=== PATIENT | male | born 1955 | race Caucasian/White ===

== ENCOUNTER 2022-01-16 14:20 | Outpatient (CLI) | payer MEDICARE, BC, SELFPAY | END 2022-01-16 14:21 | disposition home or self-care (01) | PROVIDERS: PCP Family Medicine Adolescent Medicine; Visit Provider Physician Assistant | DX: H90.3 Sensorineural hearing loss, bilateral (principal) | CPT/HCPCS: 92557; 92567 ==

== ENCOUNTER 2022-02-13 13:00 | Outpatient (RCR) | payer MEDICARE, BC, SELFPAY | END 2022-04-30 23:59 | disposition home or self-care (01) | LOC: ANHAUDASC 13:00 | PROVIDERS: PCP Family Medicine Adolescent Medicine; Visit Provider Physician Assistant | DX: Z46.1 Encounter for fitting and adjustment of hearing aid (principal) | CPT/HCPCS: 99199; V5261 ==

== ENCOUNTER 2022-08-13 13:00 | Outpatient (RCR) | payer MEDICARE, BC, SELFPAY | END 2022-08-27 23:59 | disposition home or self-care (01) | LOC: ANHAUDASC 13:00 | PROVIDERS: PCP Family Medicine Adolescent Medicine; Visit Provider Physician Assistant | DX: Z46.1 Encounter for fitting and adjustment of hearing aid (principal) | CPT/HCPCS: 99199 ==

== ENCOUNTER → 2022-12-25 10:28 | Outpatient (CLI) | payer MEDICARE, BC, SELFPAY ==
--- NOTE | ~2022-12-25 | MR_ITS ---
EXAMINATION: MR brain IAC wo con DATE: 12/25/2022 11:14 INDICATION: Other amnesia. TECHNIQUE: Magnetic resonance imaging (MRI) of the brain, brainstem, and internal auditory canals was performed without intravenous contrast. COMPARISON: None. FINDINGS: There is no intracranial hemorrhage, acute infarction, or abnormal intracranial mass lesion . There are a few punctate foci of increased T2-weighted signal intensity in the cerebral white matte r, which is normal for the patient's age. The ventricles are normal in size. The orbits are normal. T here is mild mucosal thickening in the paranasal sinuses. There is a trace left otomastoid effusion. The internal auditory canals and inner ears are normal. IMPRESSION: 1. Normal brain. Reviewed, dictated and finalized at location A. IMPRESSION: 1. Normal brain.
== END ==
PROVIDERS: PCP Family Medicine Adolescent Medicine; Visit Provider Family Medicine Adolescent Medicine
DX: R41.3 Other amnesia (principal)
CPT/HCPCS: 70551

== ENCOUNTER 2024-01-27 07:52 | Outpatient (CLI) | payer MEDICARE, BC, SELFPAY | END 2024-01-27 07:53 | disposition home or self-care (01) | LOC: ANHAUDASC 07:53 | PROVIDERS: PCP Family Medicine Adolescent Medicine; Visit Provider Family Medicine Adolescent Medicine | DX: H90.3 Sensorineural hearing loss, bilateral (principal) | CPT/HCPCS: 92557; 92567 ==

== ENCOUNTER 2025-03-15 08:41 | Emergency (ER) | payer MEDICARE, BC, SELFPAY ==
--- OUTSIDE RECORDS SUMMARY | 2025-03-15 08:44 | XMS_ITS | Referral Summary ---
Author Organization [facility] Address [address] [place] [id number] Care Team Providers Care Reel Man Name Role Phone Dayron Kang MD Primary Care Prov ider Encounters Date Type Department Care Team Description 03/03/2025 4:45 PM CDT Office Visit [facility] Care at [address] [address] Brain Gross NP Laceration of multiple sites of face (Primary Dx) 01/25/2025 Telephone [facility] [place] [address] [facility] [address] Floor [address] [place] [address] Sonal Bailey RMA Medical Question/Miscellaneo 12/19/2024 9:00 AM CDT Office Visit [facility] [address] [facility] 6th Floor [address] [place] [address] Ila Solorzano NP Word finding difficulty (Primary Dx); Anxiety; Aphasia; Hypophonia from Last 3 Months Allergies No known active allergies Medications finasteride (PROSCAR) 5 mg tablet Take 1 tablet (5 mg total) by mouth daily 3 Active omeprazole (PriLOSEC) 20 mg capsule Take 1 capsule (20 mg total) by mouth daily 3 Active tamsulosin (FLOMAX) 0.4 mg extended release capsule Take 1 capsule (0.4 mg total) by mouth daily 3 Active oxyBUTYnin (DITROPAN) 5 mg tablet Take 1 tablet (5 mg total) by mouth 2 (two) times a day 3 Active busPIRone (BUSPAR) 5 mg tablet Take 1 tablet by mouth twice daily 180 tablet 3 4 Active cholecalciferol , vitamin D3, (D3 DOTS ORAL) Take 25 mcg by mouth Active Multivits/Iron Fum/FA/D3/Lycop (MULTI FOR HIM ORAL) Take by mouth Active escitalopram (LEXAPRO) 20 mg tablet Take 1 tablet (20 mg total) by mouth daily Take 1/2 tablet daily for the first week 90 tablet 3 5 12/20/19 26 Active donepeziL (ARICEPT) 10 mg tablet Take 1 tablet (10 mg total) by mouth daily Take in the morning 90 tablet 3 5 12/20/19 26 Active melatonin 10 mg tablet Take 1 tablet (10 mg total) by mouth daily 90 tablet 3 5 Active mirabegron ER (MYRBETRIQ) 25 mg tablet extended release 24 hr Take 1 tablet (25 mg total) by mouth daily 5 Active mupirocin (BACTROBAN) 2 % ointmentIndicat ions:Laceration of multiple sites of face Apply topically 3 (three) times a day for 10 days 22 g 5 03/13/20 25 Active Problems Problem Noted Date Diagnosed Date Word finding difficulty 12/19/2024 Anxiety 12/19/2024 Aphasia 12/19/2024 Hypophonia 12/19/2024 Memory loss 02/03/2024 Assessment & Plan (02/03/2024 9:34 AM CDT): Continue donepezil/Aricept. May increase to 10 mg in the future to see if there is any improvement. Initiating 5 mg buspirone/Buspar BID to alleviate anxiety. Discussed side effects and to reach out to office if he developed any. Follow-up with Dr. Collins in May 2024, 6 months after that visit with myself. Disturbance in sleep behavior 02/03/2024 Assessment & Plan (02/03/2024 9:34 AM CDT): Referral to sleep medicine for possible REM sleep disorder. Recommended to start melatonin 3 mg at bedtime to see if there are any changes. Advised to increase to 5 mg if no changes are noted. MCI (mild cognitive impairment) 06/05/2023 Immunizations Immunization Administration Dates Next Due Tdap 03/03/2025 Social History Tobacco Use Types Packs/Day Years Used Date Smoking Tobacco: Never Passive Smoke Exposure: Never Smokeless Tobacco: Never Tobacco Cessation:Counseling Given: Not Answered Sex and Gender Information Value Date Recorded Sex Assigned at Not on file Legal Sex Male 1:29 PM CDT Gender Identity Not on file Sexual Orientation Not on file Last Filed Vital Signs Vital Sign Reading Time Taken Comments Blood Pressure 128/76 03/03/2025 4:24 PM CDT Pulse 60 03/03/2025 4:24 PM CDT Temperature 36.8 C (98.2 F) 03/03/2025 4:24 PM CDT Respiratory Rate 16 03/03/2025 4:24 PM CDT Oxygen Saturation 98% 03/03/2025 4:24 PM CDT Inhaled Oxygen Concentration - - Weight 78 kg (172 lb) 03/03/2025 4:24 PM CDT Height 180.3 cm (5' 11) 12/19/2024 9:04 AM CDT Body Mass Index 23.99 12/19/2024 9:04 AM CDT Plan of Treatment Not on file Insurance MEDICARE [facility] [employer] MEDICARE [facility] [employer] Care Teams Reel Man Relationship Specialty Start Date End Date Dayron Kang MD [address] [place] [address] PCP - General Family Medicine 03/04/23
--- OUTSIDE RECORDS SUMMARY | 2025-03-15 08:44 | XMS_ITS | Clinical Summary ---
Author Organization [facility] Address [address] [place] [address] Care Team Providers Care Appliance Painter And Refinisher Name Role Phone Dayron Kang MD Primary Care Prov ider Allergies No known active allergies Medications finasteride [...] are noted. MCI (mild cognitive impairment) 06/05/2023 Encounters Date Type Department Care Team Description 03/03/2025 4:45 PM CDT Office Visit [facility] Medical [facility] Convenient Care at [address] [address] Brain Gross NP Laceration of multiple sites of face (Primary Dx) 01/25/2025 Telephone [facility] [address] [facility] [address] [place] [address] Sonal Bailey, Dina Medical Question/Miscellaneo us 12/19/2024 9:00 AM CDT Office Visit [facility] [address] [facility] 6th Floor [address] [place] [address] Ila Solorzano NP Word finding difficulty (Primary Dx); Anxiety; Aphasia; Hypophonia from Last 3 Months Immunizations Immunization Administration Dates Next Due Tdap 03/03/2025 Medical History Medical History Date Comments GERD (gastroesophageal reflux disease) BPH (benign prostatic hyperplasia) Social History Tobacco Use Types Packs/Day Years Used Date Smoking Tobacco: Never Passive Smoke Exposure: Never Smokeless Tobacco: Never Tobacco Cessation:Counseling Given: Not Answered Sex and Gender Information Value Date Recorded Sex Assigned at Not on file Legal Sex Male 1:29 PM CDT Gender Identity Not on file Sexual Orientation Not on file Obstetrics History Last Filed Vital Signs Vital Sign Reading [...] 12/19/2024 9:04 AM CDT Plan of Treatment Health Maintenance Due Date Last Done Comments Colon Cancer Screening-Colonoscopy 1955 Depression Screening 1956 Fall Risk Assessment 1955 Hepatitis C Screening 1955 Prostate Cancer Screening-PSA 1955 Hepatitis B Screening 01/29/1974 Pneumococcal vaccine 65+ (1 of 1 - PCV) 01/29/2006 Zoster Vaccine (1 of 2) 01/29/2006 Well Visit 65+ 01/29/2021 Covid-19 Vaccine (5 - 2023-2 5 season) 2024 08/11/2022, 09/08/2021, 01/15/2021, Additional history exists Influenza Vaccine (Season Ended) 2025 08/11/20, 08/06/2020 DTaP/Tdap/Td Vaccine (2 - Td or Tdap) 03/03/2035 03/03/2025 Insurance MEDICARE [facility] [employer] MEDICARE [facility] [employer] Care Teams Appliance Painter And Refinisher Relationship Specialty Start Date End Date Dayron Kang MD [address] [place] [address] PCP - General Family Medicine 03/04/23
[2025-03-15 08:46] VITALS: BP 145/74; PULSE 68; RESP 18; TEMP 36.6; O2SAT 100
--- NOTE | 2025-03-15 08:54 | ED_ITS ---
HPI - Extremity Injury (Lower) General Chief Complaint: Extremity Injury, Lower Stated Complaint: left knee discomfort and hot Time Seen by Provider: 03/15/25 08:47 History of Present Illness HPI Narrative: Patient yesterday noticed that his left knee felt uncomfortable and warm, does not recall any recent injuries, has no history of knee surgery. Is able to walk without issue. Related Data Home Medications ?Medication ?Instructions ?Recorded ?Confirmed ?Last Taken ?Type multivitamin (Daily Multi-Vitamin 1 tablet PO DAILY 01/01/22 03/31/24 Unknown History tablet) buspirone 5 mg tablet 5 mg PO BID 03/31/24 03/31/24 Unknown History D3 DOTS ORAL PO 02/07/25 Unknown History donepezil 10 mg tablet 10 mg PO QAM 02/07/25 Unknown History escitalopram oxalate 20 mg tablet 20 mg PO DAILY 02/07/25 Unknown History melatonin 10 mg capsule 10 mg PO QHS 02/07/25 Unknown History Allergies Allergy/AdvReac Type Severity Reaction Status Date / Time No Known Allergies Allergy Verified 02/07/25 07:57 Review of Systems 2 Review of Systems: All systems reviewed & are unremarkable except as noted in HPI and below PMFSH Surgical History Surgical History History of vasectomy (1990) Family History Family History Sibling Diabetes mellitus Hypertension Heart disease Kidney failure Social History Social History Smoking status: Never smoker Second hand tobacco smoke exposure: No Alcohol intake: current Drinks per week: 7 Substance use: never Substance use type: does not use Living arrangements: with family Occupation/Education: retired Gender identity (if verbalized by the patient): Male Sexual Orientation (if Verbalized by the Patient): Straight or Heterosexual Spiritual care concerns: No Agree to blood products: Yes Exam 2 Narrative: EXAMINATION OF ORGAN SYSTEMS/BODY AREAS: Constitutional: Vital signs per nursing GENERAL:[No acute distress, non-toxic appearing.] HEAD: Normal with no signs of head trauma. EYES: EOMI, conjunctiva normal ENT: Hearing grossly intact LUNGS: Nonlabored breathing. HEART: [Regular rate and rhythm] ABD: [Soft], [nontender to palpation] EXT: Normal painless range of motion including able to extend and flex left knee and walk. No swelling or knee effusions. SKIN: Erythematous patch over left knee NEURO: [Alert. No gross focal sensory or strength deficits.] PSYCH: Normal affect Course Vital Signs Vital signs: Vital Signs Temperature 97.8 F 03/15/25 08:46 Pulse Rate 68 03/15/25 08:46 Respiratory Rate 18 03/15/25 08:46 Blood Pressure 145/74 H 03/15/25 08:46 Pulse Oximetry 100 03/15/25 08:46 Oxygen Delivery Room Air 03/15/25 08:46 Temperature 97.8 F 03/15/25 08:55 Pulse Rate 68 03/15/25 08:55 Respiratory Rate 18 03/15/25 08:55 Blood Pressure 145/74 H 03/15/25 08:55 Pulse Oximetry 100 03/15/25 08:55 Oxygen Delivery Room Air 03/15/25 08:46 MDM - Extremity Injury (Lower) MDM Narrative Medical decision making narrative: 70-year-old male presents here after noticing area of redness to the front of his left knee, denies any recent injury, it is slightly painful to touch, but he is able to bend his knee and walk without issues. On exam there is redness but painless active range of motion, no joint effusion or swelling, overall this all makes me think more likely cellulitis versus septic joint, however will obtain blood work here, some on antibiotics, and provided very strict return precautions with the patient and at bedside that if he were to develop any signs of septic joint such as more pain, or any pain with movement, swelling of the knee, systemic symptoms, or anything else concerning; he is also given f/u to ortho. Lab Data 03/15/25 08:59 03/15/25 08:59 Labs: Lab Results 03/15/25 Range/Units 08:59 WBC 11.3 H (4.5-10.0) K/mm3 RBC 4.10 L (4.6-6.20) M/mm3 Hgb 12.7 L (14.0-18.0) g/dL Hct 39.6 L (42.0-52.0) % MCV 96.6 (80-100) fl MCH 31.0 (26-34) pg MCHC 32.1 (32-36) g/dl RDW 12.6 (11.5-14.5) % Plt Count 213 (150-375) k/mm3 MPV 10.3 (7.4-10.4) fl Immature Gran % (Auto) 0.4 (0-0.5) % Neut % (Auto) 79.3 H (45.5-73.1) % Lymph % (Auto) 8.6 L (18.3-44.2) % [place] % (Auto) 9.2 H (2.6-8.5) % Eos % (Auto) 2.1 (0-4.4) % Baso % (Auto) 0.4 (0.2-1.2) % Lymph # (Auto) 0.98 (0.9-3.2) K/mm3 [place] # (Auto) 1.0 H (0.1-0.6) K/mm3 Eos # (Auto) 0.2 (0-0.3) K/mm3 Baso # (Auto) 0.0 (0.0-0.1) K/mm3 Abs Immat Gran (auto) 0.05 H (0.00-0.031) K/mm3 Absolute Neuts (auto) 9.0 H (1.3-6.7) K/mm3 Absolute Nucleated RBC 0.000 (0.0-0.012) K/mm3 Nucleated RBC % 0.0 (0.0-0.2) % Sodium 143 (137-145) mmol/L Potassium 3.7 (3.4-5.0) mmol/L Chloride 112 H (98-107) mmol/L Carbon Dioxide 26 (22-30) mmol/L Anion Gap 5 (4-12) mmol/L BUN 20 (9-20) mg/dL Creatinine 0.87 (0.7-1.3) mg/dL Estim Creat Clear Calc 72 ml/min Estimated GFR > 60 (59 - ) Glucose 123 H (65-110) mg/dL Calcium 9.5 (8.4-10.2) mg/dL Discharge Plan Discharge Clinical Impression: Cellulitis Patient Disposition: Home Condition: Stable Instructions: Antibiotic Form, Cellulitis (ED) Additional Instructions: Please take the antibiotics as prescribed, and follow up with your doctor. If you start noticing swelling around your knee, pain with bending your knee, if the redness spreads or does not improve, or anything else concerning, please come back to the emergency room immediately. Patient Language: Amharic Prescriptions: New cephalexin 500 mg capsule 500 mg PO Q6H 7 Days Qty: 28 0RF No Action buspirone 5 mg tablet 5 mg PO BID donepezil 10 mg tablet 10 mg PO QAM melatonin 10 mg capsule 10 mg PO QHS escitalopram oxalate 20 mg tablet 20 mg PO DAILY D3 DOTS ORAL PO mirabegron 25 mg tablet extended release 24 hr 25 mg PO DAILY Qty: 90 3RF multivitamin [Daily Multi-Vitamin] Tablet 1 tablet PO DAILY tamsulosin 0.4 mg capsule See Rx Instructions .ROUTE .COMPLEX Qty: 180 0RF Dose Instruction: Take 1 capsule by mouth twice daily Rx Instructions: Take 1 capsule by mouth twice daily finasteride 5 mg tablet See Rx Instructions .ROUTE .COMPLEX Qty: 90 0RF Dose Instruction: Take 1 tablet by mouth once daily Rx Instructions: Take 1 tablet by mouth once daily omeprazole 20 mg capsule,delayed release(DR/EC) See Rx Instructions .ROUTE .COMPLEX Qty: 90 0RF Dose Instruction: Take 1 capsule by mouth once daily Rx Instructions: Take 1 capsule by mouth once daily Follow-up/Referrals: Melecio Franklin MD [Physician] - 2 Days Dayron Kang MD [Primary Care Provider] - 2 Days
[2025-03-15 08:55] VITALS: BP 145/74; PULSE 68; RESP 18; TEMP 36.6; O2SAT 100
[2025-03-15 09:06] LABS: Basophils Percent Auto 0.4 % (0.2-1.2); Eosinophils Absolute Auto 0.2 K/mm3 (0-0.3); Eosinophils Percent Auto 2.1 % (0-4.4); Hematocrit 39.6 % (42.0-52.0); Hemoglobin 12.7 g/dL (14.0-18.0); Immature Granulocyte Absolute 0.05 K/mm3 (0.00-0.031); Immature Granulocyte Percent A 0.4 % (0-0.5); Lymphocytes Absolute Auto 0.98 K/mm3 (0.9-3.2); Lymphocytes Percent Auto 8.6 % (18.3-44.2); Mean Corpuscular HGB Conc 32.1 g/dl (32-36); Mean Corpuscular Volume 96.6 fl (80-100); Mean Platelet Volume 10.3 fl (7.4-10.4); Monocytes Percent Auto 9.2 % (2.6-8.5); Neutrophils Percent Auto 79.3 % (45.5-73.1); Platelet Count Result 213 k/mm3 (150-375); Red Cell Distribution Width 12.6 % (11.5-14.5); White Blood Count 11.3 K/mm3 (4.5-10.0)
[2025-03-15 09:16] LABS: Anion Gap 5 mmol/L (4-12); Blood Urea Nitrogen 20 mg/dL (9-20); Calcium 9.5 mg/dL (8.4-10.2); Carbon Dioxide 26 mmol/L (22-30); Chloride 112 mmol/L (98-107); Estimated CRCL calculation 72 ml/min; Estimated Glomerular Filt Rate > 60; Glucose 123 mg/dL (65-110); Potassium 3.7 mmol/L (3.4-5.0); Sodium 143 mmol/L (137-145)
[2025-03-15] MEDS: CEPHALEXIN 500 MG CAPSULE PO (09:22)
--- OUTSIDE RECORDS SUMMARY | 2025-03-15 10:02 | XMS_ITS | Referral Summary ---
Author Organization [facility] Address [address] [place] [phone] Care Team Providers Care Program Director/Air Personality Name Role Phone Dayron Kang MD Primary Care Prov ider Encounters Date Type Department Care Team Description 03/03/2025 4:45 PM CDT Office Visit [facility] Medical [facility] Convenient Care at [address] [address] Brain Gross NP Laceration of multiple sites of face (Primary Dx) 01/25/2025 Telephone [facility] [place] [address] [facility] First Floor [address] [place] [address] Sonal Bailey RMA Medical Question/Miscellaneo 12/19/2024 9:00 AM CDT Office Visit [facility] [address] [facility] 6th Floor [address] [place] [address] Ila Solorzano NP Word finding [...] of Treatment Not on file Insurance MEDICARE [facility] [employer] MEDICARE [facility] [employer] Care Teams Program Director/Air Personality Relationship Specialty Start Date End Date Dayron Kang MD [address] [place] [address] PCP - General Family Medicine 03/04/23
--- OUTSIDE RECORDS SUMMARY | 2025-03-15 10:02 | XMS_ITS | Clinical Summary ---
Author Organization [facility] Address [address] [place] [address] Care Team Providers Care Screw Machine Adjuster Automatic Name Role Phone Dayron Kang MD Primary [...] Description 03/03/2025 4:45 PM CDT Office Visit [facility] Medical [facility] Convenient Care at [address] [address] Brain Gross NP Laceration of multiple sites of face (Primary Dx) 01/25/2025 Telephone [facility] [address] [facility] [address] Floor [address] [place] [address] Sonal Bailey, Dina Medical Question/Miscellaneo us 12/19/2024 9:00 AM CDT Office Visit [facility] [address] [facility] 6th Floor [address] [place] [address] Ila Solorzano NP Word finding [...] Td or Tdap) 03/03/2035 03/03/2025 Insurance MEDICARE [facility] [employer] MEDICARE [facility] [employer] Care Teams Screw Machine Adjuster Automatic Relationship Specialty Start Date End Date Dayron Kang MD [address] [place] [address] PCP - General Family Medicine 03/04/23
== END 2025-03-15 11:17 | disposition home or self-care (01) ==
LOC: ANHED 09:52
PROVIDERS: Emergency Provider Emergency Medicine; PCP Family Medicine Adolescent Medicine
DX: L03.116 Cellulitis of left lower limb (principal)
CPT/HCPCS: 36415; 80048; 85025; 87040; 87181; 99283; A9270

== ENCOUNTER 2025-06-21 10:00 | Outpatient (RCR) | payer MEDICARE, BC, SELFPAY ==
--- NOTE | 2025-04-05 11:18 | OPREHPOC ---
Outpatient Therapy Plan of Care This is a Multidisciplinary Plan of Care that may contain components documented by all disciplines (PT, OT, and ST.) ST Goal 1 Goal / Goal Update The patient will participate in home programming to improve carry over/generalization of skills to the home environment. Target Visit 6 ST Goal 1 Goal / Goal Update Verbal Expression: 1. The patient will complete sentence formulation with 85% minimal cues 2. The patient will complete complex word finding tasks with 85% minimal cues. 3. The patient will verbalize 3-4 steps for everyday activities with 85% minimal cues Target Visit 10 ST Goal 1 Goal / Goal Update Auditory Comprehension/Processing 1. The patient will follow 3 step directives with 85% minimal cues. 2. The patient will comprehend paragraph length information with 80% minimal cues. Target Visit 10 ST Goal 1 Goal / Goal Update Voice 1. the patient will produce sentence length responses using compensatory techniques and optimal vocal volume 85% of time with minimal cues 2. The patient will utilize and optimal vocal volume in 3-4 simple conversation exchanges 80% of time with minimal cues. Target Visit 10
--- NOTE | 2025-04-05 11:18 | STOPEVAL1 ---
Assessment and note entered by Mabel Abarca, REHABILITATOR Evaluation Information Assessment Status Evaluation Diagnosis R47.90 R47.01 R49.8 ICD-10 Condition Codes (ST) Dysphagia, pharyngeal phase R13.13,Dysphonia R49.0 Subjective Information The patient is a 70 yr old male referred by Dr. Sanchez for a speech and language evaluation and treatment. 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 He stated they have concerns with changes in his voice, word-finding, and general communication. He is accompanied by his daughter. He has begun to see a neurologist but does not at this time have a diagnosis but states there are concerns for early dementia. Reported Pain Level Pain Score 0: Self Report Assessment ST Clinical Summary The patient is a 70 yr old male referred by Dr. Sanchez for a speech and language evaluation and treatment. 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 He stated they have concerns with changes in his voice, word-finding, and general communication. He is accompanied by his daughter. He has begun to see a neurologist but does not at this time have a diagnosis but states there are concerns for early dementia. The patient was given the [facility] Speech /Language Evaluation as well as probed portions for memory, thought organization, auditory processing and voice. Results indicate mild deficits with auditory comprehension for 3 step directives (75%) and comprehension for complex paragraph length information (75%) secondary to recall/retaining the information and delayed auditory processing. Mild deficits with verbal expression with noted word searching when attempting to organize his thoughts to express his ideas or thoughts (75%). In addition the patient is noted to have a low vocal volume when speaking at approximately 55-60 DB as measured by a voice meter in close proximity. Finally when probing thought organization the patient required extra time for most tasks and struggled to formulate his thoughts. Verbal sequencing 65% acc. Object comparison 60% acc. Recommend speech services to address Auditory Comprehension complex, Verbal Expression Word Retrieval, and Voice. Results were reviewed with patient and family and are in agreement with treatment at this time. Plan of Care Interventions Treatment of Speech,Treatment of Language, Treatment for Cognitive Function,Treatment of Voice ST Services Indicated Yes Treatment Frequency and 1x week for 10 visits. Duration These treatments will address the objective and functional deficits as defined above. The patient will be advanced safely and appropriately in order for the patient to progress towards his/her prior level of function. Additional exercises will be introduced and as well as a comprehensive home exercise program upon discharge, if needed, ?to ensure carryover of functional gains achieved in the clinic. This treatment plan has been reviewed and agreement upon by the patient.
--- NOTE | 2025-06-21 10:48 | STOPDC ---
Assessment and note entered by Mabel Abarca SALES CONSULTANT Evaluation Information Assessment Status Discharge Reported Pain Level Pain Score 0: Self Report Assessment ST Clinical Summary Patient initial concerns were as follows: The patient is a 70 yr old male referred by Dr. Sanchez for a speech and language evaluation and treatment. 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 He stated they have concerns with changes in his voice, word-finding, and general communication. He is accompanied by his daughter. He has begun to see a neurologist but does not at this time have a diagnosis but states there are concerns for early dementia. The patient was re-administered the [facility] Speech/Language Evaluation today 06/21/25 as well as probed portions for memory, thought organization, auditory processing and voice. Results indicate the following improvement mild deficits with auditory comprehension for 3 step directives (80% improved from 75%) and comprehension for complex paragraph length information (85% improved from 75%) secondary to recall/retaining the information and delayed auditory processing. Mild deficits with verbal expression with noted word searching when attempting to organize his thoughts to express his ideas or thoughts (80% improved from 75%). In addition the patient is noted to have a low vocal volume when speaking at approximately 55-60 DB as measured by a voice meter in close proximity. Finally when probing thought organization the patient required extra time for most tasks and struggled to formulate his thoughts. Verbal sequencing (80% as compared to 65% ) accuracy. Object comparison 75% as compared to 60% accuracy. Recommend continued speech services to address Verbal Expression for Word Retrieval, memory, and voice. Results were reviewed with patient and family they have decided to continue speech services at [facility] where they live due to the convenience of location for driving. Plan of Care ST Services Indicated Yes
== END 2025-06-21 12:40 | disposition home or self-care (01) ==
LOC: ANHST 10:00
PROVIDERS: PCP Family Medicine Adolescent Medicine
DX: R47.89 Other speech disturbances (principal); F41.9 Anxiety disorder, unspecified; R47.01 Aphasia; R49.8 Other voice and resonance disorders
CPT/HCPCS: 92507; 92523